=== PATIENT | female | born 1960 | race Caucasian/White ===

== ENCOUNTER 2020-11-20 06:45 | Emergency (ER) | payer MEDICAID ==
--- NOTE | 2020-11-20 07:30 | EDM.PDOC ---
ED HPI GENERAL MEDICAL PROBLEM - General Chief Complaint: Genitourinary Problem Stated Complaint: BLADDER INFECTION Time Seen by Provider: 11/20/20 07:20 Source of Information: Reports: Patient, Old Records, RN History Limitations: Reports: No Limitations - History of Present Illness INITIAL COMMENTS - FREE TEXT/NARRATIVE: 59 yo female presents with dysuria and low back pain. Has a pHx of UTI's about yearly. Denies fever or flank pain. Onset: Gradual Onset Date: 11/19/20 Duration: Day(s): (1), Getting Worse Location: Reports: Pelvis (urethral pain) Quality: Reports: Burning Severity: Moderate Improves with: Reports: None Worsens with: Reports: Other (time, voiding) Context: Reports: Other (See HPI) Associated Symptoms: Reports: No Other Symptoms. Denies: Fever/Chills, Nausea/Vomiting Treatments F[employer] ATTENDANT: Reports: Other (see below) (none) Bladder Pain Score (Numeric/FACES): 5 - Related Data Allergies Allergy/AdvReac Type Severity Reaction Status Date / Time No Known Allergies Allergy Verified 11/20/20 06:59 Home Meds: Home Meds Metoprolol Succinate [Toprol Xl] 50 mg PO DAILY 11/20/20 [History] Pantoprazole Sodium [Protonix] 20 mg PO BID 11/20/20 [History] buPROPion HCL [Wellbutrin Xl] 150 mg PO DAILY 11/20/20 [History] hydroCHLOROthiazide [Hydrochlorothiazide] 37.5 mg PO DAILY 11/20/20 [History] metFORMIN [Glucophage] 1,000 mg PO BEDTIME 11/20/20 [History] metFORMIN [Glucophage] 500 mg PO ACBREAKFAST 11/20/20 [History] Past Medical History Cardiovascular History: Reports: High Cholesterol, Hypertension Gastrointestinal History: Reports: GERD Endocrine/Metabolic History: Reports: Diabetes, Type II Social & Family History - Tobacco Use Tobacco Use Status *Q: Never Tobacco User ED ROS GENERAL - Review of Systems Review Of Systems: See Below Constitutional: Reports: No Symptoms. Denies: Fever, Chills HEENT: Reports: No Symptoms Respiratory: Reports: No Symptoms Cardiovascular: Reports: No Symptoms GI/Abdominal: Reports: Nausea. Denies: Vomiting : Reports: Dysuria, Frequency. Denies: Flank Pain Skin: Reports: No Symptoms ED EXAM, RENAL/ - Physical Exam Exam: See Below Exam Limited By: No Limitations General Appearance: Alert, WD/WN, No Apparent Distress Eye Exam: Bilateral Eye: Normal Inspection Ears: Normal External Exam, Normal Canal, Hearing Grossly Normal, Normal TMs Nose: Normal Inspection, No Blood Throat/Mouth: Normal Inspection, Normal Lips, Normal Oropharynx, Normal Voice, No Airway Compromise Head: Atraumatic, Normocephalic Neck: Normal Inspection Respiratory/Chest: No Respiratory Distress Back Exam: No: CVA Tenderness (R), CVA Tenderness (L) Extremities: Normal Inspection Neurological: Alert, Oriented, CN II-XII Intact, Normal Cognition, No Motor/Sensory Deficits Psychiatric: Normal Affect, Normal Mood Skin Exam: Warm, Dry, Intact, Normal Color, No Rash Course - Vital Signs Last Recorded V/S: Last Vital Signs Temp 36.2 C 11/20/20 06:57 Pulse 71 11/20/20 06:57 Resp 18 11/20/20 06:57 BP 169/83 H 11/20/20 06:57 Pulse Ox 99 11/20/20 06:57 - Orders/Labs/Meds Orders: Active Orders 24 hr Category Date Time Status CULTURE URINE [RM] Stat Lab 11/20/20 07:39 Ordered Labs: Laboratory Tests 11/20/20 Range/Units 07:13 Urine Color Red A (YELLOW) Urine Appearance Turbid A (CLEAR) Urine pH 6.5 (5.0-8.0) Ur Specific [place] 1.020 (1.008-1.030) Urine Protein >=300 H (NEGATIVE) mg/dL Urine Glucose (UA) Negative (NEGATIVE) mg/dL Urine Ketones Negative (NEGATIVE) mg/dL Urine Occult Blood Large H (NEGATIVE) Urine Nitrite Negative (NEGATIVE) Urine Bilirubin Negative (NEGATIVE) Urine Urobilinogen 0.2 (0.2-1.0) EU/dL Ur Leukocyte Esterase Large H (NEGATIVE) Urine RBC Packed H (0-5) Urine WBC Packed H (0-5) Ur Epithelial Cells Not seen Amorphous Sediment Not seen Urine Bacteria Many Urine Mucus Not seen Urine Other Departure - Departure Time of Disposition: 07:45 Disposition: Home, Self-Care 01 Condition: Good Clinical Impression: Cystitis - Discharge Information *PRESCRIPTION DRUG MONITORING PROGRAM REVIEWED*: Not Applicable *COPY OF PRESCRIPTION DRUG MONITORING REPORT IN PATIENT ANTHONY: Not Applicable Instructions: Urinary Tract Infection, Adult, [id number] Referrals: PCP,None [Primary Care Provider] - Forms: ED Department Discharge Additional Instructions: Take MacroBid every 12 hrs for 7 days. Drink ample fluids. If having lots of pain with urination considering picking up some AZO at [facility] today, open 10 am to 5 pm today. A culture was initiated today. If after 3 days you are not noticing improvement contact your provider and they can review your culture result and choose a different antibiotic for you. Return for fever. Sepsis Event Note (ED) - Focused Exam Vital Signs: Vital Signs Temp Pulse Resp BP Pulse Ox 11/20/20 06:57 36.2 C 71 18 169/83 H 99 - My Orders Last 24 Hours: My Active Orders 11/20/20 07:39 CULTURE URINE [RM] Stat - Assessment/Plan Last 24 Hours: My Active Orders 11/20/20 07:39 CULTURE URINE [RM] Stat
== END 2020-11-20 07:52 | disposition home or self-care (01) ==
LOC: JP.ED 06:45
DX: N30.90 Cystitis, unspecified without hematuria (principal); E78.00 Pure hypercholesterolemia, unspecified; I10 Essential (primary) hypertension; K21.9 Gastro-esophageal reflux disease without esophagitis; E11.9 Type 2 diabetes mellitus without complications; Z79.84 Long term (current) use of oral hypoglycemic drugs; Z79.899 Other long term (current) drug therapy
CPT/HCPCS: 81001; 87086; 87088; 87186; 99283

== ENCOUNTER 2022-02-03 07:20 | Emergency (ER) | payer MEDICAID ==
[2022-02-03] MEDS ORDERED: cefTRIAXone 1 GM, Lidocaine 1% 2.1 ML IM ONE ×2 (08:02)
== END 2022-02-03 08:40 | disposition home or self-care (01) ==
LOC: JP.ED 07:20
DX: N39.0 Urinary tract infection, site not specified (principal); I10 Essential (primary) hypertension; E11.9 Type 2 diabetes mellitus without complications; Z79.899 Other long term (current) drug therapy; Z79.84 Long term (current) use of oral hypoglycemic drugs
CPT/HCPCS: 81001; 87086; 87088; 87186; 96372; 99284; J0696